=== PATIENT | female | born 1960 | race Caucasian/White ===

== ENCOUNTER 2018-09-14 11:42 | Emergency (ER) | payer OTHER, MEDICAID, SELFPAY ==
[2018-09-14 11:45] VITALS: BP 156/98; PULSE 93; RESP 16; TEMP 36.8; O2SAT 98; BMI 21.2
--- NOTE | 2018-09-14 11:56 | PC.NURSE ---
states, takes methadone and bowels are irregular, possible last bm 5 days ago, which is normal for her.
--- NOTE | 2018-09-14 12:11 | DI.RAD.S_ITS ---
PROCEDURE: XR ABDOMEN MIN 2V INDICATIONS: abdominal/back pain, no BM x 1 week TECHNIQUE: 2 views of the abdomen were acquired. COMPARISON: None. FINDINGS: Surgical changes and devices: None. Bowel: No pneumoperitoneum. The bowel gas pattern is nonobstructive although large amount of stool seen in the left colon and splenic flexure. Few nonspecific air-fluid levels. Soft tissues: No masses; visualized solid organ contours appear normal in size. No suspicious abdominal calcifications. Bones: No suspicious bony abnormalities. Incidentally noted scoliosis IMPRESSION: Large amount of stool seen within the left colon. No definite bowel obstruction. Although if the patient's symptoms do not improve recommend continued surveillance with abdominal series radiographs. Dictated by: Federico Salazar M.D. on 09/14/2018 at 12:47 Approved by: Federico Salazar M.D. on 09/14/2018 at 12:49
--- NOTE | 2018-09-14 12:14 | ED_ITS ---
HPI - Back Pain/Injury General Chief Complaint: Back Pain/Injury Stated Complaint: thinks she slipped a disk in her back Time Seen by Provider: 09/14/18 11:57 Source: patient Mode of arrival: ambulatory Limitations: no limitations History of Present Illness HPI Narrative: This a 57-year-old female comes to the emergency department with complaint of back pain. Patient states that she slipped disc about 3 days ago on and she has been continuing to have symptoms. She has a history of low back pain but it has been worse. She denies any recent loss of bowel or bladder control. She denies any new numbness tingling or weakness into her lower extremities. She has had numbness in her hands upon wakening but it goes away she moves around. She also has been having abdominal pain which she states started about the same time as her back pain. She states she has not had a bowel movement in about 6 days. She states that is typical for her because she is on methadone for addiction. She had vomiting yesterday but none today. She has not had any fevers. She has not had any urinary symptoms otherwise. She does have a history of rectal prolapse and is scheduled for colonoscopy as she saw specialty doctor for this and they stated it was normal. That was when she had 3 episodes of bowel incontinence but that was not recently and not still occurring. Related Data Home Medications Medication Instructions Recorded Confirmed celecoxib [Celebrex] #0 02/23/11 ibuprofen 600 mg PO PRN #0 02/23/11 Previous Rx's Medication Instructions Recorded meloxicam [Mobic] 7.5 mg PO BID PRN #14 tab 09/14/18 Allergies Allergy/AdvReac Type Severity Reaction Status Date / Time No Known Drug Allergies Allergy Verified 09/14/18 12:24 Review of Systems Review of Systems All systems reviewed & are unremarkable except as noted in HPI and below Constitutional Denies chills, Denies fever(s), Denies frequent falls and Denies weakness Cardiovascular Denies chest pain, Denies irregular heart rhythm, Denies lightheadedness, Denies palpitations, Denies dyspnea, Denies dyspnea on exertion and Denies orthopnea Respiratory Denies cough, Denies dyspnea, Denies dyspnea on exertion and Denies wheezing Gastrointestinal Gastrointestinal: Reports abdominal pain, Denies change in bowel habits, Reports constipation, Denies diarrhea, Denies nausea, Reports vomiting and Denies other (fecal incontinence) Genitourinary Denies hematuria, Denies flank pain, Denies urinary incontinence and Denies urinary urgency Musculoskeletal Reports as per HPI, Reports back pain, Reports limited range of motion, Denies muscle weakness, Denies numbness and Denies tingling Integumentary/Breasts Denies rash Neurologic Denies frequent falls, Denies numbness, Denies radicular pain, Denies sensory deficit, Denies tingling and Denies weakness Endocrine Denies palpitations Allergic/Immunologic Denies wheezing [facility] Medical History Substance abuse (Acute) Social History Smoking Status: Current every day smoker Exam Narrative Exam Narrative: GENERAL: Alert and oriented x three, Thin female in moderate distress. HEENT: Head normocephalic, atraumatic, EOMI, pupils reactive, face symmetric, moist mucous membranes NECK: Supple, full range of motion CARDIOVASCULAR: Regular rate and rhythm without murmurs, rubs or gallops. RESPIRATORY: Breath sounds equal bilaterally, no wheezes rales or rhonchi. ABDOMEN: Soft, nontender. Nondistended. Normoactive bowel sounds all 4 quadrants. No guarding or rebound, rigidity, no mass : No CVA tenderness BACK: No cervical, thoracic or lumbar vertebral point tenderness. Patient has normal range of motion. Patient's gait is slightly stooped and slow. Rectal exam is deferred. Muscle strength is 5/5 in lower extremities, DTRs are 2/4 and lower extremities. Dorsalis pedis and tibialis pulses are 2+ and lower extremities. Sensation is intact in the lower extremities. EXTREMITIES: Normal range of motion, no clubbing or edema. Neurovascularly intact NEUROLOGICAL: Cranial nerves II through XII grossly intact. Moving all extremities SKIN: Warm, dry, no petechiae, no rashes or lesions. Initial Vital Signs Initial Vital Signs: Vital Signs Temperature 98.2 F 09/14/18 11:45 Pulse Rate 93 H 09/14/18 11:45 Respiratory Rate 16 09/14/18 11:45 Blood Pressure 156/98 H 09/14/18 11:45 Pulse Oximetry 98 09/14/18 11:45 Course Orders Ordered: ED Orders 09/14/18 12:11 XR abdomen min 2V Stat 09/14/18 12:30 Complete Blood Count AUTO DIFF Stat Comprehensive Metabolic Panel Stat Discontinued Medications Ketorolac Tromethamine (Toradol) 60 mg IM NOW ONE Stop: 09/14/18 12:12 Last Admin: 09/14/18 12:26 Dose: 60 mg Vital Signs - 8 hr 09/14/18 11:45 Temperature 98.2 F Pulse Rate 93 H Respiratory Rate 16 Blood Pressure 156/98 H Pulse Oximetry 98 MDM - Back Pain/Injury Lab Data Attestation: I reviewed the patient's lab results. Result diagrams: 09/14/18 12:30 09/14/18 12:30 Lab Results 09/14/18 09/14/18 Range/Units 12:30 12:30 WBC 10.5 (4.5-11.0) X10^3/uL RBC 4.49 (4.0-5.2) X10^6/uL Hgb 13.0 (12.0-16.0) g/dL Hct 38.6 (36-46) % MCV 86.1 (80-100) fL MCH 28.9 (26-34) PG MCHC 33.5 (30-36) % RDW 17.7 H (11.6-14.8) % Plt Count 330 (150-400) X10^3/uL Neut % (Auto) 78.1 H (50-75) % Lymph % (Auto) 11.6 L (25-40) % [place] % (Auto) 9.0 (3-14) % Eos % (Auto) 0.7 L (2-4) % Baso % (Auto) 0.6 (0-2) % Neut # (Auto) 8200 H (5624-3320) /uL Sodium 141 (137-145) mmol/L Potassium 4.6 (3.4-5.1) mmol/L Chloride 106 (98-107) mmol/L Carbon Dioxide 25 (22-32) mmol/L BUN 15 (7-17) mg/dL Creatinine 0.60 (0.52-1.04) mg/dL Estimated GFR > 60.0 (>60) mL/min BUN/Creatinine Ratio 25.0 H (6-22) Glucose 79 (70-100) mg/dL Calcium 9.3 (8.4-10.2) mg/dL Total Bilirubin 0.7 (0.2-1.3) mg/dL AST 25 (14-36) IU/L ALT 17 (9-52) IU/L Alkaline Phosphatase 91 (38-126) U/L Total Protein 7.8 (6.3-8.2) g/dL Albumin 4.3 (3.5-5.0) g/dL Globulin 3.5 (1.7-4.1) g/dL Albumin/Globulin Ratio 1.2 (1.0-2.8) Urine Dip Bedside Urine Glucose Negative Bedside Urine Bilirubin - Negative Bedside Urine Ketone +/- 5 Urine Specific [place] 1.015 Bedside Urine Occult Blood - Negative Bedside Urine pH 6.0 Bedside Urine Protein - Negative Bedside Urine Urobilinogen - Negative Bedside Urine Nitrite - Negative Bedside Urine Leukocytes - Negative Esterase Imaging Data Abdominal x-ray: Radiologist's impression: [address] [id number] XRay Report Signed Patient: Rozina Mojica LMR#: [id number] : 1960Acct:[id number] Age/Sex: 57 / FDate of Service: 09/14/18 Loc: ED Accession Number: [id number] Procedure: XR abdomen min 2V Ordering Provider: Ava Welsh D.O. PROCEDURE: XR ABDOMEN MIN 2V INDICATIONS: abdominal/back pain, no BM x 1 week TECHNIQUE: 2 views of the abdomen were acquired. COMPARISON: None. FINDINGS: Surgical changes and devices: None. Bowel: No pneumoperitoneum. The bowel gas pattern is nonobstructive although large amount of stool seen in the left colon and splenic flexure. Few nonspecific air -fluid levels. Soft tissues: No masses; visualized solid organ contours appear normal in size. No suspicious abdominal calcifications. Bones: No suspicious bony abnormalities. Incidentally noted scoliosis IMPRESSION: Large amount of stool seen within the left colon. No definite bowel obstruction. Although if the patient's symptoms do not improve recommend continued surveillance with abdominal series radiographs. Dictated by: Federico Salazar M.D. on 09/14/2018 at 12:47 Approved by: Federico Salazar M.D. on 09/14/2018 at 12:49 MDM Narrative Medical decision making narrative: Recheck after medication. Patient is feeling better after Toradol. Patient has some changes that are questionable for possible obstruction but no clear clinical symptoms. She has been constipated but states this is normal with her methadone. She threw up yesterday but has not been throwing up at all today. We discussed signs and symptoms to watch for and my concern for potential bowel obstruction versus obstipation. Patient and I discussed that she should return if she is having worsening symptoms. We also discussed signs and symptoms to watch out for her back. She was quite concerned about false-positive testing with the Toradol and meloxicam. I did review with pharmacy and there were no specific changes that there have been positive tests although there have been if you remotely according to a some literature from up-to-date. Discharge Plan Departure Patient Disposition: Home Clinical Impression: Back pain Discharge Date/Time: 09/14/18 14:01 Interventions: ED Discharge Assessment Last Done: 09/14/18 14:01 Instructions: DI for Low Back Pain, DI for Abdominal Pain-Adult Activity Restrictions/Additional Instructions: Follow-up in 3-5 days if your back pain has not improved. Return to the emergency department for fevers greater than 100.4, persistent vomiting especially if you are not having any bowel movements, passing out, new chest pain or shortness of breath, new weakness or numbness in lower extremities, loss of bowel or bladder control or other concerning symptoms. Take medications as prescribed. You received Toradol here in the emergency department. You may continue your other medications as prescribed. Prescriptions: New meloxicam [Mobic] 7.5 mg tablet 7.5 mg PO BID PRN (Reason: pain) Qty: 14 RF: 0 No Action celecoxib [Celebrex] 200 MG capsule Qty: 0 RF: 0 ibuprofen 200 MG tablet 600 mg PO PRN Qty: 0 RF: 0
[2018-09-14] MEDS: KETOROLAC 60 MG/2 ML VIAL IM (12:26)
[2018-09-14 12:39] LABS: Add Manual Diff / Slide Review NO; Basophils Percent Auto 0.6 % (0-2); Eosinophils Percent Auto 0.7 % (2-4); Hematocrit 38.6 % (36-46); Lymphocytes Percent Auto 11.6 % (25-40); Mean Corpuscular HGB Conc 33.5 % (30-36); Mean Corpuscular Hemoglobin 28.9 PG (26-34); Mean Corpuscular Volume 86.1 fL (80-100); Neutrophils Absolute Auto 8200 /uL (3000-5900); Neutrophils Percent Auto 78.1 % (50-75); Platelet Count 330 X10^3/uL (150-400); Red Blood Cell Count 4.49 X10^6/uL (4.0-5.2); Red Cell Distribution Width 17.7 % (11.6-14.8); White Blood Cell Count 10.5 X10^3/uL (4.5-11.0)
[2018-09-14 12:51] LABS: Alanine Aminotransferase 17 IU/L (9-52); Albumin 4.3 g/dL (3.5-5.0); Albumin Globulin Ratio 1.2 (1.0-2.8); Alkaline Phosphatase 91 U/L (38-126); Aspartate Aminotransferase 25 IU/L (14-36); Bilirubin Total 0.7 mg/dL (0.2-1.3); Blood Urea Nitrogen 15 mg/dL (7-17); Calcium 9.3 mg/dL (8.4-10.2); Carbon Dioxide 25 mmol/L (22-32); Chloride 106 mmol/L (98-107); Estimated Glomerular Filt Rate > 60.0 mL/min (>60); Globulin 3.5 g/dL (1.7-4.1); Glucose 79 mg/dL (70-100); HEMOLYSIS 29 (0-50); Potassium 4.6 mmol/L (3.4-5.1); Sodium 141 mmol/L (137-145); Total Protein 7.8 g/dL (6.3-8.2)
== END 2018-09-14 14:01 | disposition home or self-care (01) ==
PROVIDERS: Emergency Provider Emergency Medicine
DX: M54.9 Dorsalgia, unspecified (principal)
CPT/HCPCS: 36415; 74019; 80053; 81003; 85025; 96372; 99282; 99284; J1885

== ENCOUNTER 2021-05-03 18:57 | Emergency (ER) | payer OTHER, MEDICAID, SELFPAY ==
[2021-05-03 19:01] VITALS: BP 158/107; PULSE 82; RESP 20; TEMP 36.5; O2SAT 100
--- NOTE | 2021-05-03 19:15 | DI.RAD.S_ITS ---
PROCEDURE: XR ACUTE ABDOMEN SERIES INDICATIONS: constipation/nausea TECHNIQUE: One view chest and two views of the abdomen were acquired. COMPARISON: None. FINDINGS: Surgical changes and devices: None. Chest: Lungs are clear. Heart size is normal. No pleural effusions. No pneumoperitoneum. Abdomen: Significant stool is present without gross obstruction. No suspicious calcifications. Visualized solid organ contours appear normal. Bones: No suspicious bony lesions. IMPRESSION: Significant colonic stool consistent constipation. No obstruction. Dictated by: Elin Katz M.D. on 05/03/2021 at 20:50 Approved by: Elin Katz M.D. on 05/03/2021 at 20:50
--- NOTE | 2021-05-03 20:33 | ED_ITS ---
HPI - Abdominal Pain General Chief Complaint: Abdominal Pain Stated Complaint: no bowel movements for 10+ days Time Seen by Provider: 05/03/21 19:44 Source: patient Mode of arrival: Ambulatory Limitations: no limitations History of Present Illness HPI narrative: 60-year-old female smoker and former IV drug abuser presents with a chief complaint of decreased bowel movements for at least 10 days. She has generalized discomfort and some nausea but denies any vomiting. She has had no dysuria, frequency or urgency. She has been clean from IV drugs for over 3 years and has been using methadone with great success. She states that she routinely takes [id number] stool softeners but which she routinely uses was not available at the pharmacy about 10 days ago and her symptoms seem to start soon thereafter when she started taking a different medication. She has had no success with enemas at home. MD complaint: abdominal pain Onset (ago): day(s) Pain Consistency: intermittent Location: diffuse Severity: moderate Quality: cramping Radiation: none Migration to: no migration Relieving factors: nothing Exacerbating factors: nothing Related Data Home Medications Medication Instructions Recorded Confirmed celecoxib [Celebrex] #0 02/23/11 ibuprofen 600 mg PO PRN #0 02/23/11 Previous Rx's Medication Instructions Recorded meloxicam [Mobic] 7.5 mg PO BID PRN #14 tab 09/14/18 Allergies Allergy/AdvReac Type Severity Reaction Status Date / Time No Known Drug Allergies Allergy Verified 09/14/18 12:24 Review of Systems Constitutional Constitutional: Denies chills, Denies fatigue, Denies fever(s), Denies frequent falls, Denies lethargy and Denies weakness Eyes Eyes: Denies change in vision, Denies eye discharge, Denies irritation and Denies loss of vision ENT Ears, Nose, Mouth, and Throat: Denies change in voice, Denies dizziness, Denies neck pain, Denies sore throat and Denies throat swelling Cardiovascular Cardiovascular: Denies chest pain, Denies irregular heart rhythm, Denies lightheadedness, Denies palpitations, Denies dyspnea, Denies dyspnea on exertion and Denies orthopnea Respiratory Respiratory: Denies cough, Denies dyspnea, Denies dyspnea on exertion and Denies wheezing Gastrointestinal Gastrointestinal: Reports abdominal pain, Denies change in bowel habits, Denies diarrhea, Reports nausea and Denies vomiting Musculoskeletal Musculoskeletal: Denies neck pain and Denies numbness Integumentary/Breasts Skin/Breast: Denies pruritus, Denies erythema, Denies rash and Denies wounds Neurologic Neurologic: Denies behavioral changes, Denies confusion, Denies dizziness, Denies frequent falls, Denies loss of vision, Denies numbness and Denies weakness Psychiatric Psychiatric: Denies anxiety, Denies behavioral changes, Denies confusion, Denies depression, Denies homicidal ideation and Denies suicidal ideation Endocrine Endocrine: Denies fatigue, Denies flushing and Denies palpitations Hematologic/Lymphatic Hematologic/Lymphatic: Denies easy bruising Allergic/Immunologic Allergic/Immunologic: Denies urticaria, Denies throat swelling and Denies wheezing Patient History Medical History Substance abuse Social History Smoking Status: Current every day smoker Smoking Status: Current every day smoker Exam Narrative Exam Narrative: GENERAL: [] 60 year old patient appears stated age. Well- developed patient, in mild distress. HEAD: Atraumatic. Normocephalic. EYES: Pupils equal round and reactive. Extraocular motions intact. No scleral icterus. No injection or drainage. ENT: Nose without bleeding, purulent drainage. Throat without erythema, tonsillar hypertrophy or exudate. Airway patent. NECK: Trachea midline. Non tender CARDIOVASCULAR: Regular rate and rhythm without murmurs, gallops, or rubs. RESPIRATORY: Clear to auscultation. Breath sounds equal bilaterally. No wheezes, rales, or rhonchi. GASTROINTESTINAL: Abdomen soft, mild tenderness and minimal bloating, bowel sounds present in all 4 quadrants, nondistended. EXTREMITIES: No edema or joint tenderness. BACK: Nontender without deformity or crepitance. No flank tenderness. NEURO: AOx3. SKIN: No rash or erythema of visible areas Initial Vital Signs Initial Vital Signs: Vital Signs Temperature 97.7 F 05/03/21 19:01 Pulse Rate 82 05/03/21 19:01 Respiratory Rate 20 05/03/21 19:01 Blood Pressure 158/107 H 05/03/21 19:01 Pulse Oximetry 100 05/03/21 19:01 Course Orders Ordered: ED Orders 05/03/21 19:15 XR acute abdomen series Stat 05/03/21 21:20 Urine Microscopic Stat Discontinued Medications Bisacodyl (Bisacodyl 10 Mg Supp) 10 mg AR NOW ONE Stop: 05/03/21 21:26 Last Admin: 05/03/21 21:43 Dose: 10 mg Documented by: MARY Mineral Oil (Mineral Oil 1 Each Enema) 1 each AR NOW ONE Stop: 05/03/21 22:09 Last Admin: 05/03/21 22:11 Dose: 1 each Documented by: LEYDI Vital Signs Vital signs: Vital Signs - 8 hr 05/03/21 19:01 05/03/21 22:30 05/03/21 23:50 Temperature 97.7 F Pulse Rate 82 86 85 Respiratory Rate 20 16 16 Blood Pressure 158/107 H 167/77 H 160/80 H Pulse Oximetry 100 98 96 MDM - Abdominal Pain Lab Data Labs: Lab Results 05/03/21 Range/Units 21:20 Urine RBC None seen (0-5/HPF) Urine WBC 1-5/hpf (0-5/HPF) Ur Squamous Epith Cells 1-5 /hpf (0-5/HPF) Urine Bacteria Occasional (0-1) (None) Ur Culture Indicated? Cult not indicated Point of care testing: Urine Dip Bedside Urine Glucose Negative Bedside Urine Bilirubin + 1 Bedside Urine Ketone - Negative Urine Specific [place] 1.030 Bedside Urine Occult Blood - Negative Bedside Urine pH 5.5 Bedside Urine Protein +/- 15 Bedside Urine Urobilinogen - Negative Bedside Urine Nitrite - Negative Bedside Urine Leukocytes - Negative Esterase Imaging Data Abdominal x-ray: Radiologist's Impression: [address] [id number] ReportSigned Patient: Rozina Mojica LMR#: [id number]: 1960Acct:[id number]/Sex: 60 / FDate of Service: 05/03/21Loc: EDAccession Number: [id number] Procedure: XR acute abdomen series Ordering Provider: Vadim Cross D.O. PROCEDURE: XR ACUTE ABDOMEN SERIES INDICATIONS: constipation/nausea TECHNIQUE: One view chest and two views of the abdomen were acquired. COMPARISON: None. FINDINGS: Surgical changes and devices: None. Chest: Lungs are clear. Heart size is normal. No pleural effusions. No pneumoperitoneum. Abdomen: Significant stool is present without gross obstruction. No suspicious calcifications. Visualized solid organ contours appear normal. Bones: No suspicious bony lesions. IMPRESSION: Significant colonic stool consistent constipation. No obstruction. Dictated by: Elin Katz M.D. on 05/03/2021 at 20:50 Approved by: Elin Katz M.D. on 05/03/2021 at 20:50 Discharge Plan Departure Patient Disposition: Home Clinical Impression: Constipation Qualifiers: Constipation type: unspecified constipation type Qualified Code(s): K59.00 - Constipation, unspecified Instructions: DI for Constipation Activity Restrictions/Additional Instructions: *You have been diagnosed with [ abdominal pain due to constipation ] *What to do: *Take over the counter medications as directed: 1. Metamucil - is a bulk forming laxative and adds fiber 2. Colace - softens your stool 3. Dulcolax suppository - stimulates your bowels *Follow up with your primary care provider in 2-3 days, call for appointment *Return to ER if you should have any new, worsening or concerning symptoms *Drink plenty of water and eat foods high in fiber *Stay as active as you can as this helps move your bowels as well Prescriptions: No Action celecoxib [Celebrex] 200 MG capsule Qty: 0 RF: 0 ibuprofen 200 MG tablet 600 mg PO PRN Qty: 0 RF: 0 meloxicam [Mobic] 7.5 mg tablet 7.5 mg PO BID PRN (Reason: pain) Qty: 14 RF: 0 Referrals: [facility] [Outside]
[2021-05-03 21:40] LABS: RBC Urine None Seen (0-5/HPF)
[2021-05-03] MEDS: BISACODYL 10 MG SUPP PR (21:43)
[2021-05-03 21:58] LABS: Squamous Epithelial Cell Urine 1-5 /HPF (0-5/HPF); WBC Urine 1-5/HPF (0-5/HPF)
[2021-05-03 21:59] LABS: Bacteria Urine Occasional (0-1); Culture Indicated Urine Cult Not Indicated
[2021-05-03] MEDS: MINERAL OIL 1 EACH ENEMA PR (22:11)
[2021-05-03 22:30] VITALS: BP 167/77; PULSE 86; RESP 16; O2SAT 98
[2021-05-03 23:50] VITALS: BP 160/80; PULSE 85; RESP 16; O2SAT 96
== END 2021-05-03 23:50 | disposition home or self-care (01) ==
PROVIDERS: Emergency Provider Emergency Medicine
DX: K59.00 Constipation, unspecified (principal); R11.0 Nausea
CPT/HCPCS: 74022; 81003; 81015; 99283; 99284

== ENCOUNTER 2024-08-29 04:34 | Emergency (ER) | payer OTHER, MEDICAID, SELFPAY ==
[2024-08-29 05:19] VITALS: BP 125/62; PULSE 86; RESP 16; TEMP 36.8; O2SAT 96; BMI 17.5
[2024-08-29 05:26] LABS: Ictotest Urine Negative (Negative)
[2024-08-29 05:37] LABS: RBC Urine 5-10/HPF (0-5/HPF); Urine Volume 10mL (spun); WBC Urine 0-1/HPF (0-5/HPF)
[2024-08-29 05:38] LABS: Bacteria Urine Occasional (0-1); Culture Indicated Urine Specimen Cultured; Squamous Epithelial Cell Urine 1-5 /HPF (0-5/HPF)
--- NOTE | 2024-08-29 05:53 | ED_ITS ---
HPI - Female Genitourinary General Chief complaint: Urogenital-Female Stated complaint: uti Time Seen by Provider: 08/29/24 05:01 Source: patient, RN notes reviewed and old records reviewed Mode of arrival: Ambulatory Limitations: no limitations History of Present Illness HPI Narrative: 63-year-old female presents with complaint of recent UTIs was treated with Macrobid and Bactrim. Did not miss doses with her Bactrim. She most recently completed her 2nd round of antibiotics 3 days ago was still having some dysuria but that is stopped 2 days ago. States no fevers or chills, no abdominal back or flank pain, no dysuria urgency or frequency in the last 2 days. Patient states she had reached out her physician and they had told her to go to the walk-in clinic to be evaluated who then referred her here. Patient states she continues to be asymptomatic for the past 2 days. Denies any other GI symptoms. No nausea or vomiting. Notes she does have a history of osteoporosis does take medications [id number] for this. Denies any drug allergies. Does use tobacco, denies any regular recreational drugs. Patient states primary care is through [facility]. Related Data Home Medications Medication Instructions Recorded Confirmed celecoxib 200 mg capsule (Celebrex) ##0 02/23/11 ibuprofen 200 mg tablet 600 mg PO PRN ##0 02/23/11 Previous Rx's Medication Instructions Recorded meloxicam 7.5 mg tablet (Mobic) 7.5 mg PO BID PRN pain #14 tabs 09/14/18 Allergies Allergy/AdvReac Type Severity Reaction Status Date / Time No Known Drug Allergies Allergy Verified 09/14/18 12:24 Review of Systems Review of Systems ROS Unobtainable: All systems reviewed & are unremarkable except as noted in HPI and below Patient History Medical History Substance abuse Substance Use Type: does not use Exam Narrative Exam Narrative: GENERAL: Alert and oriented x three, thin elderly female HEENT: Head normocephalic, atraumatic, EOMI, pupils reactive, face symmetric, m oist mucous membranes NECK: Supple, full range of motion CARDIOVASCULAR: Regular rate and rhythm without murmurs, rubs or gallops. RESPIRATORY: Breath sounds equal bilaterally, no wheezes rales or rhonchi. ABDOMEN: Soft, nontender. Normoactive bowel sounds all 4 quadrants. No guarding or rebound, rigidity, no mass : No CVA tenderness EXTREMITIES: Normal range of motion, no clubbing or edema. Neurovascularly intact NEUROLOGICAL: Cranial nerves II through XII grossly intact. Moving all extremities SKIN: Warm, dry, no petechiae, no rashes or lesions. Initial Vital Signs Initial Vital Signs: Vital Signs Temperature 98.2 F 08/29/24 05:19 Pulse Rate 86 08/29/24 05:19 Respiratory Rate 16 08/29/24 05:19 Blood Pressure 125/62 08/29/24 05:19 Pulse Oximetry 96 08/29/24 05:19 Oxygen Delivery Method Room Air 08/29/24 05:19 Course Orders Ordered: ED Orders 08/29/24 05:13 Ictotest Urine Stat Urine Culture Stat Urine Microscopic Stat Vital Signs Vital signs: Vital Signs - 8 hr 08/29/24 05:19 08/29/24 06:02 Temperature 98.2 F Pulse Rate 86 88 Respiratory Rate 16 18 Blood Pressure 125/62 117/56 L Pulse Oximetry 96 97 Oxygen Delivery Method Room Air Room Air MDM - Female Genitourinary Lab Data Labs: Lab Results 08/29/24 Range/Units 05:13 Ur Bilirubin Confirm Negative (Negative) Urine RBC 5-10/hpf H (0-5/HPF) Urine WBC 0-1/hpf (0-5/HPF) Ur Squamous Epith Cells 1-5 /hpf (0-5/HPF) Urine Bacteria Occasional (0-1) (None) Ur Culture Indicated? Specimen cultured Vol Urine Centrifuged 10ml (spun) Urine Dip Bedside Urine Glucose Negative Bedside Urine Bilirubin + 1 Bedside Urine Ketone +/- 5 Urine Specific [place] 1.03 Bedside Urine Occult Blood ++ Bedside Urine pH 6 Bedside Urine Protein +/- 15 Bedside Urine Urobilinogen - Negative Bedside Urine Nitrite - Negative Bedside Urine Leukocytes +/- 15 Esterase [facility] Narrative Medical decision making narrative: 63-year-old female with recent UTIs did not complete her 1st course antibiotics but did complete the 2nd 1. That was 3 days ago was having symptoms 3 days ago but has since in the last 2 days not had any additional symptoms. Point of care urine shows blood, positive for leukocyte esterase. Urine shows 5-10 RBCs, 1 white cell, 1-5 squamous 1 bacteria. Urine was cultured. Patient had recent treatment for UTI with Bactrim and Macrobid no urine cultures or testing is available in EMR. Discussed with patient as she is currently asymptomatic and feeling improved after recently completing antibiotics would wait for culture. Discussed with patient she would be contacted if urine culture is positive, if negative we would not contact. Patient states she feels comfortable with this plan. She is otherwise well-appearing, has a appropriate vitals currently asymptomatic for the past 2 days. Discharge Plan Departure Patient Disposition: Home Clinical Impression: Concern about urinary tract disease without diagnosis Activity Restrictions/Additional Instructions: Your urine has been sent for culture this takes about 48-72 hours to result, if it is positive for bacteria you would be contacted to start antibiotics. As you recently completed antibiotics and has been asymptomatic for the past 2 days we will not start any antibiotics currently. I hope you continue to feel improved. Please return if you are having fevers, new abdominal back or flank pain, dysuria, urgency or frequency, difficulty with urination, vomiting or other new or concerning changes. Prescriptions: No Action celecoxib [Celebrex] 200 MG capsule Qty: 0 ibuprofen 200 MG tablet 600 mg PO PRN Qty: 0 meloxicam [Mobic] 7.5 mg tablet 7.5 mg PO BID PRN (Reason: pain) Qty: 14 0RF Referrals: Bobby Humphries [Other] Stand Alone Forms: Patient Portal/API
[2024-08-29 06:02] VITALS: BP 117/56; PULSE 88; RESP 18; O2SAT 97
== END 2024-08-29 06:18 | disposition home or self-care (01) ==
PROVIDERS: Emergency Provider Emergency Medicine
DX: N39.0 Urinary tract infection, site not specified (principal)
CPT/HCPCS: 81003; 81015; 87086; 99282

== ENCOUNTER 2024-09-18 18:05 | Emergency (ER) | payer OTHER, MEDICAID, SELFPAY ==
[2024-09-18 18:41] VITALS: BP 121/72; PULSE 95; RESP 17; TEMP 37.1; O2SAT 98; BMI 17.5
[2024-09-18 19:02] LABS: Ictotest Urine Negative (Negative)
[2024-09-18 21:19] VITALS: BP 110/57; PULSE 86; RESP 18; TEMP 36.5; O2SAT 98
[2024-09-18 21:23] LABS: Bacteria Urine Occasional (0-1); Culture Indicated Urine Specimen Cultured; RBC Urine 5-10/HPF (0-5/HPF); Squamous Epithelial Cell Urine None Seen (0-5/HPF); Urine Volume 10mL (spun); WBC Urine 5-10/HPF (0-5/HPF)
[2024-09-18 21:33] VITALS: BP 132/68; PULSE 81; O2SAT 98
--- NOTE | 2024-09-18 21:37 | PC.NURSE ---
Pt states that she has rectal prolapse, and wears a pad but changes it frequently.
--- NOTE | 2024-09-18 21:42 | ED.GENADULT ---
HPI - General Adult General Chief complaint: Urogenital-Female Stated complaint: UTI Time Seen by Provider: 09/18/24 21:36 Source: patient Mode of arrival: Ambulatory Limitations: no limitations History of Present Illness HPI narrative: Patient is a 63-year-old female. Here for evaluation of what she states is urinary tract infection. She states that several weeks ago she started to have discomfort in the lower abdomen. She was seen and evaluated. Was diagnosed with the urinary tract infection. Was put on Macrobid. Finish the course of the Macrobid. Continue to have some right-sided abdominal discomfort. She was then placed on Bactrim by her primary doctor. She stated that she was then seen again. Was told that she still had a urinary tract infection and put back on Macrobid. She was completed all 3 courses of antibiotics. She was not having any specific dysuria. No pain with urination. No urinary frequency. No urgency. States she is intermittent right-sided abdominal discomfort. At the time of my evaluation she was not having any pain. She was not having any back pain. No vomiting. No fevers. No vaginal bleeding. No change in bowel habits. Related Data Home Medications Medication Instructions Recorded Confirmed celecoxib 200 mg capsule (Celebrex) ##0 02/23/11 ibuprofen 200 mg tablet 600 mg PO PRN ##0 02/23/11 Previous Rx's Medication Instructions Recorded meloxicam 7.5 mg tablet (Mobic) 7.5 mg PO BID PRN pain #14 tabs 09/14/18 Allergies Allergy/AdvReac Type Severity Reaction Status Date / Time No Known Drug Allergies Allergy Verified 09/14/18 12:24 Review of Systems Review of Systems Narrative: See HPI Patient History Medical History Substance abuse Social History Smoking Status: Current every day smoker Smoking Status: Current every day smoker tobacco type: cigarettes Substance Use Type: does not use Exam Initial Vital Signs Initial Vital Signs: Vital Signs Temperature 98.8 F 09/18/24 18:41 Pulse Rate 95 H 09/18/24 18:41 Respiratory Rate 17 09/18/24 18:41 Blood Pressure 121/72 09/18/24 18:41 Pulse Oximetry 98 09/18/24 18:41 Oxygen Delivery Method Room Air 09/18/24 18:41 Const General: cooperative, comfortable and No ill appearing [facility] Head: normal to inspection and normocephalic Resp Effort & Inspection: normal respiratory effort Auscultation: clear to auscultation bilaterally Cardio Rate: regular rate Rhythm: regular rhythm GI Inspection: normal to inspection and non-distended Palpation: soft, guarding and tender (Right-sided abdomen) Skin General: no rashes or lesions noted Neuro General: patient alert, patient awake and moves all extremities Course Orders Ordered: ED Orders 09/18/24 18:40 Ictotest Urine Stat Urine Culture Stat Urine Microscopic Stat 09/18/24 21:43 CT abdomen pelvis w con Stat 09/18/24 22:16 Complete Blood Count AUTO DIFF Stat Comprehensive Metabolic Panel Stat Lipase Stat Vital Signs Vital signs: Vital Signs - 8 hr 09/18/24 18:41 09/18/24 21:19 09/18/24 21:33 Temperature 98.8 F 97.7 F Pulse Rate 95 H 86 81 Respiratory Rate 17 18 Blood Pressure 121/72 110/57 L Pulse Oximetry 98 98 98 Oxygen Delivery Method Room Air Room Air 09/18/24 21:33 09/18/24 22:24 09/18/24 22:30 Temperature Pulse Rate 85 86 Respiratory Rate Blood Pressure 132/68 Pulse Oximetry 98 96 Oxygen Delivery Method 09/18/24 23:00 Temperature Pulse Rate 87 Respiratory Rate Blood Pressure Pulse Oximetry 97 Oxygen Delivery Method Medical Decision Making Lab Data Lab results reviewed: Yes I reviewed the patient's lab results. 09/18/24 22:16 09/18/24 22:16 Labs: Lab Results 09/18/24 09/18/24 Range/Units 18:40 22:16 WBC 5.8 (4.5-11.0) X10^3/uL RBC 3.88 L (4.0-5.2) X10^6/uL Hgb 9.1 L (12.0-16.0) g/dL Hct 29.1 L (36-46) % MCV 75.2 L (80-100) fL MCH 23.5 L (26-34) PG MCHC 31.3 (30-36) % RDW 18.5 H (11.6-14.8) % Plt Count 472 H (150-400) X10^3/uL Neut % (Auto) 56.7 (50-75) % Lymph % (Auto) 31.6 (25-40) % [place] % (Auto) 8.4 (3-14) % Eos % (Auto) 2.5 (2-4) % Baso % (Auto) 0.8 (0-2) % Neut # (Auto) 3300 (5912-1236) /uL Lymph # (Auto) 1800 (9922-2557) /uL [place] # (Auto) 500 (0-900) /uL Eos # (Auto) 100 (0-450) /uL Baso # (Auto) 0 (0-100) /uL Sodium 134 L (137-145) mmol/L Potassium 3.8 (3.4-5.1) mmol/L Chloride 103 (98-107) mmol/L Carbon Dioxide 29 (22-32) mmol/L BUN 26 H (7-17) mg/dL Creatinine 0.86 (0.52-1.04) mg/dL Estimated GFR > 60 (>60) mL/min BUN/Creatinine Ratio 30.2 H (6-22) Glucose 118 H (80-110) mg/dL Calcium 8.8 (8.4-10.2) mg/dL Total Bilirubin 0.3 (0.2-1.3) mg/dL AST 35 (14-36) IU/L ALT 20 (<35) IU/L Alkaline Phosphatase 52 (38-126) U/L Total Protein 7.2 (6.3-8.2) g/dL Albumin 3.6 (3.5-5.0) g/dL Globulin 3.6 (1.7-4.1) g/dL Albumin/Globulin Ratio 1.0 (1.0-2.8) Lipase 53 (23-300) U/L Ur Bilirubin Confirm Negative (Negative) Urine RBC 5-10/hpf H (0-5/HPF) Urine WBC 5-10/hpf H (0-5/HPF) Ur Squamous Epith Cells None seen (0-5/HPF) Urine Bacteria Occasional (0-1) (None) Ur Culture Indicated? Specimen cultured Vol Urine Centrifuged 10ml (spun) Urine Dip Bedside Urine Glucose Negative Bedside Urine Bilirubin + 1 Bedside Urine Ketone - Negative Urine Specific [place] 1.015 Bedside Urine Occult Blood +++ Bedside Urine pH 6.0 Bedside Urine Protein +/- 15 Bedside Urine Urobilinogen - Negative Bedside Urine Nitrite - Negative Bedside Urine Leukocytes +/- 15 Esterase Point of care testing: Urine Dip Bedside Urine Glucose Negative Bedside Urine Bilirubin + 1 Bedside Urine Ketone - Negative Urine Specific [place] 1.015 Bedside Urine Occult Blood +++ Bedside Urine pH 6.0 Bedside Urine Protein +/- 15 Bedside Urine Urobilinogen - Negative Bedside Urine Nitrite - Negative Bedside Urine Leukocytes +/- [address] scan - abdomen/pelvis: Radiologist's Impression: PROCEDURE: CT ABDOMEN PELVIS W CON INDICATIONS: Right lower quadrant abdominal pain TECHNIQUE: After the administration of intravenous contrast, axial sections acquired from the lung bases to the pubic symphysis. Coronal and sagittal reformats were performed. For radiation dose reduction, the following was used: automated exposure control, adjustment of mA and/or kV according to patient size. COMPARISON: None. FINDINGS: Image quality: Diagnostic Lower chest: Unremarkable lung bases moderate hiatal hernia. Normal heart size. Coronary calcifications. Liver: Subcentimeter liver dome lesion is too small to characterize, most commonly a cyst or hemangioma. No definite solid mass Gallbladder and biliary system: Gallbladder appears unremarkable. Mildly distended CBD at 7-8 mm. Pancreas: No ductal dilation Spleen: Nonenlarged Adrenals: No discrete adrenal nodule Kidneys: Nonobstructing right renal calculi up to 6 mm. No hydronephrosis. Vessels and lymph nodes: The main portal vein is patent. No abdominal aortic aneurysm. Atherosclerotic calcifications are present. No pathologic lymph nodes by size criteria. Bowel and peritoneum: No evidence of small bowel obstruction. There is relatively little intraperitoneal fat, which limits evaluation. There is large fecal loading. The appendix was not discretely seen. Body wall: Unremarkable Pelvis: Bladder is unremarkable. Reproductive organs are unremarkable on limited CT evaluation. Bones: No suspicious osseous findings. Multilevel vertebral body height loss, most significantly at L1, age-indeterminate. Vertebral augmentation sequelae T11 also present. IMPRESSION: Limited CT due to lack of intraperitoneal fat. No small bowel obstruction. There is large fecal loading. Appendix was not discretely identified. No abscess or ascites is seen. Mildly distended biliary system measuring 7-8 mm at the CBD, correlate LFTs. Age-indeterminate height loss of multiple thoracolumbar vertebral bodies. Other findings as above. MDM Narrative Medical decision making narrative: Her urinalysis today has blood and some findings that would be consistent with a urinary tract infection if she were having specific UTI like symptoms what she was not having. Since she was already been on 3 courses of antibiotics without improvement of symptoms we will hold on starting another course of antibiotics now and wait for urine culture to resolved. She was having intermittent right-sided abdominal pain. CT scan was ordered which did not show any acute pathology. She was not having right upper quadrant tenderness. She states that Tylenol and ibuprofen do help her symptoms and I would recommend that she continue to do that. She was informed that we will contact her if we need to start antibiotics based on the urine culture. She was given return precautions and follow-up instructions. She expressed understanding and agreement. Discharge Plan Departure Patient Disposition: Home Clinical Impression: Abdominal pain Instructions: DI for Abdominal Pain-Adult Activity Restrictions/Additional Instructions: We are going to wait for the urine culture to result before we start you on any antibiotics. You will receive a call from the emergency department if we need to start antibiotics based on the culture. No recommend that you contact your primary doctor and also the general surgeon the number provided below for a follow-up. The CT scan also has some indication that you maybe constipated so I recommend stool softeners and laxatives. Return to the emergency department for new symptoms. Prescriptions: No Action celecoxib [Celebrex] 200 MG capsule Qty: 0 ibuprofen 200 MG tablet 600 mg PO PRN Qty: 0 meloxicam [Mobic] 7.5 mg tablet 7.5 mg PO BID PRN (Reason: pain) Qty: 14 0RF Referrals: Rubens Bernard MD [Physician] - Stand Alone Forms: Patient Portal/API/Survey
[2024-09-18 22:24] VITALS: PULSE 85; O2SAT 98
[2024-09-18 22:26] LABS: Add Manual Diff / Slide Review NO; Basophils Absolute Auto 0 /uL (0-100); Basophils Percent Auto 0.8 % (0-2); Eosinophils Absolute Auto 100 /uL (0-450); Eosinophils Percent Auto 2.5 % (2-4); Hematocrit 29.1 % (36-46); Hemoglobin 9.1 g/dL (12.0-16.0); Lymphocytes Absolute Auto 1800 /uL (1100-4500); Lymphocytes Percent Auto 31.6 % (25-40); Mean Corpuscular HGB Conc 31.3 % (30-36); Mean Corpuscular Hemoglobin 23.5 PG (26-34); Mean Corpuscular Volume 75.2 fL (80-100); Monocytes Absolute Auto 500 /uL (0-900); Monocytes Percent Auto 8.4 % (3-14); Neutrophils Absolute Auto 3300 /uL (1500-7000); Neutrophils Percent Auto 56.7 % (50-75); Platelet Count 472 X10^3/uL (150-400); Red Blood Cell Count 3.88 X10^6/uL (4.0-5.2); Red Cell Distribution Width 18.5 % (11.6-14.8); White Blood Cell Count 5.8 X10^3/uL (4.5-11.0)
[2024-09-18 22:30] VITALS: PULSE 86; O2SAT 96
[2024-09-18 22:36] LABS: Alanine Aminotransferase 20 IU/L (<35); Albumin 3.6 g/dL (3.5-5.0); Alkaline Phosphatase 52 U/L (38-126); Aspartate Aminotransferase 35 IU/L (14-36); BUN Creatinine Ratio 30.2 (6-22); Bilirubin Total 0.3 mg/dL (0.2-1.3); Blood Urea Nitrogen 26 mg/dL (7-17); Calcium 8.8 mg/dL (8.4-10.2); Carbon Dioxide 29 mmol/L (22-32); Chloride 103 mmol/L (98-107); Estimated Glomerular Filt Rate > 60 mL/min (>60); Globulin 3.6 g/dL (1.7-4.1); Glucose 118 mg/dL (80-110); HEMOLYSIS < 15 (0-50); Lipase 53 U/L (23-300); Potassium 3.8 mmol/L (3.4-5.1); Sodium 134 mmol/L (137-145); Total Protein 7.2 g/dL (6.3-8.2)
[2024-09-18 23:00] VITALS: PULSE 87; O2SAT 97
== END 2024-09-18 23:21 | disposition home or self-care (01) ==
PROVIDERS: Emergency Provider Emergency Medicine
DX: R10.31 Right lower quadrant pain (principal); N39.0 Urinary tract infection, site not specified
CPT/HCPCS: 36415; 74177; 80053; 81003; 81015; 83690; 85025; 87086; 99283; 99284; Q9967

== ENCOUNTER 2024-12-03 21:47 | Emergency (ER) | payer OTHER, SELFPAY ==
[2024-12-03 22:07] VITALS: BP 153/65; PULSE 85; RESP 20; TEMP 36.6; O2SAT 99; BMI 17.5
[2024-12-03 22:20] LABS: Bacteria Urine Moderate (10-30); Culture Indicated Urine Specimen Cultured; RBC Urine 0-1/HPF (0-5/HPF); Squamous Epithelial Cell Urine 0-1 /HPF (0-5/HPF); Transitional Epi Cells Urine 0-1/HPF (0-5/HPF); Urine Volume Low Vol <1mL unspun; WBC Urine 0-1/HPF (0-5/HPF)
--- NOTE | 2024-12-03 22:45 | ED.FEMALEGU ---
HPI - Female Genitourinary General Chief complaint: Urogenital-Female Stated complaint: Poss UTI Time Seen by Provider: 12/03/24 21:54 Source: patient Mode of arrival: Ambulatory History of Present Illness HPI Narrative: 64-year-old female presents stating that she thinks she has a urinary tract infection. She states that she has vague suprapubic abdominal discomfort identical to when she was diagnosed with a UTI previously. Denies burning with urination, nausea, vomiting, flank pain, other complaints. Related Data Home Medications Medication Instructions Recorded Confirmed Methadone PO 11/26/24 11/26/24 acetaminophen 500 mg tablet 1,500 mg PO ONCE 11/26/24 11/26/24 (Tylenol Extra Strength) aspirin 81 mg tablet,delayed 81 mg PO DAILY 11/26/24 11/26/24 release bupropion HCl 150 mg 24 hr tablet, 150 mg PO QAM 11/26/24 11/26/24 extended release famotidine 20 mg tablet 40 mg PO BID 11/26/24 11/26/24 gabapentin 100 mg capsule 100 mg PO DAILY PRN 11/26/24 11/26/24 ibuprofen 200 mg tablet 800 mg PO ONCE 11/26/24 11/26/24 sennosides 8.6 mg tablet (Senna 8.6 mg PO DAILY 11/26/24 11/26/24 Lax) Previous Rx's Medication Instructions Recorded nitrofurantoin macrocrystal 100 mg 100 mg PO BID #10 caps 12/03/24 capsule Allergies Allergy/AdvReac Type Severity Reaction Status Date / Time No Known Drug Allergies Allergy Verified 11/26/24 15:01 Patient History Medical History Hiatal hernia Scoliosis Substance abuse Surgical History Hx of lumpectomy Family History Mother Hypertension Diabetes mellitus Cancer Heart disease Gallstones tobacco type: cigarettes Exam Initial Vital Signs Initial Vital Signs: Vital Signs Temperature 97.8 F 12/03/24 22:07 Pulse Rate 85 12/03/24 22:07 Respiratory Rate 20 12/03/24 22:07 Blood Pressure 153/65 H 12/03/24 22:07 Pulse Oximetry 99 12/03/24 22:07 Oxygen Delivery Method Room Air 12/03/24 22:07 Const: Awake, alert, frail, appears chronically unwell, older than stated age Cardiac: regular rate, regular rhythm RESP: unlabored, clear bilaterally, no wheezing GI: Soft, nontender, nondistended, no rebound, no guarding Skin: Warm, Dry, intact, no rashes Neuro: AO x3, CN II-XII grossly intact, moves all extremities Course Orders Ordered: ED Orders 12/03/24 21:50 Urine Culture Stat Urine Microscopic Stat Vital Signs Vital signs: Vital Signs - 8 hr 12/03/24 22:07 Temperature 97.8 F Pulse Rate 85 Respiratory Rate 20 Blood Pressure 153/65 H Pulse Oximetry 99 Oxygen Delivery Method Room Air MDM - Female Genitourinary Lab Data Labs: Lab Results 12/03/24 Range/Units 21:50 Urine RBC 0-1/hpf (0-5/HPF) Urine WBC 0-1/hpf (0-5/HPF) Ur Squamous Epith Cells 0-1 /hpf (0-5/HPF) Ur Transition Epith Cell 0-1/hpf (0-5/HPF) Urine Bacteria Moderate (10-30) H (None) Ur Culture Indicated? Specimen cultured Vol Urine Centrifuged Low vol <1ml unspun A Urine Dip Bedside Urine Glucose Negative Bedside Urine Bilirubin - Negative Bedside Urine Ketone - Negative Urine Specific [place] 1.030 Bedside Urine Occult Blood ++ Bedside Urine pH 6.0 Bedside Urine Protein - Negative Bedside Urine Urobilinogen - Negative Bedside Urine Nitrite - Negative Bedside Urine Leukocytes +/- 15 Esterase MDM Narrative Medical decision making narrative: Patient with symptoms of urinary tract infection similar to previous. While she reports suprapubic discomfort there is absolutely no tenderness to light or deep palpation in any region of the patient's abdomen. Urinalysis with bacteria and leukocyte esterase. Since she was symptomatic a prescription was sent to patient's pharmacy of choice. Discharge Plan Departure Patient Disposition: Home Clinical Impression: Urinary tract infection Instructions: DI for Urinary Tract Infection (UTI) Activity Restrictions/Additional Instructions: Finish your antibiotics as prescribed. Follow up with your primary care doctor. Prescriptions: New nitrofurantoin macrocrystal 100 mg capsule 100 mg PO BID Qty: 10 0RF Rx Instructions: must administer with a meal/food No Action famotidine 20 mg tablet 40 mg PO BID ibuprofen 200 mg tablet 800 mg PO ONCE acetaminophen [Tylenol Extra Strength] 500 mg tablet 1,500 mg PO ONCE gabapentin 100 mg capsule 100 mg PO DAILY PRN sennosides [Senna Lax] 8.6 mg tablet 8.6 mg PO DAILY aspirin 81 mg tablet,delayed release (DR/EC) 81 mg PO DAILY bupropion HCl 150 mg tablet extended release 24 hr 150 mg PO QAM Methadone 130 mg PO Referrals: Miscellaneous,Doctor, MD [Primary Care Provider] - Stand Alone Forms: Patient Portal/API/Survey
== END 2024-12-03 22:53 | disposition home or self-care (01) ==
PROVIDERS: Emergency Provider Emergency Medicine
DX: N39.0 Urinary tract infection, site not specified (principal); R30.0 Dysuria; R10.9 Unspecified abdominal pain; F17.210 Nicotine dependence, cigarettes, uncomplicated; F19.10 Other psychoactive substance abuse, uncomplicated
CPT/HCPCS: 81003; 81015; 87086; 99281; 99282

== ENCOUNTER 2024-12-22 15:26 | Emergency (ER) | payer OTHER, SELFPAY ==
[2024-12-22 16:23] VITALS: BP 125/68; PULSE 88; RESP 18; TEMP 36.6; O2SAT 97; BMI 17.5
[2024-12-22 16:47] LABS: Appearance Urine UA CLEAR; Bilirubin Urine UA NEGATIVE (NEGATIVE); Color Urine UA YELLOW; Glucose Urine UA NEGATIVE (Negative); Ketones Urine UA NEGATIVE (NEGATIVE); Leukocyte Esterase Urine UA NEGATIVE (NEGATIVE); Nitrite Urine UA NEGATIVE (Negative); Occult Blood Urine UA TRACE-INTACT (Negative); Protein Urine UA NEGATIVE (Negative)
[2024-12-22 17:04] LABS: Bacteria Urine Occasional (0-1); Culture Indicated Urine Cult Not Indicated; RBC Urine 1-5/HPF (0-5/HPF); Squamous Epithelial Cell Urine 0-1 /HPF (0-5/HPF); Urine Volume 10mL (spun); WBC Urine 0-1/HPF (0-5/HPF)
== END 2024-12-22 16:35 | disposition left against medical advice (07) ==
PROVIDERS: Emergency Provider Emergency Medicine
DX: R10.2 Pelvic and perineal pain (principal); Z87.440 Personal history of urinary (tract) infections
CPT/HCPCS: 81001; 81003; 99281